=== PATIENT | male | born 1950 | race Caucasian/White ===

== ENCOUNTER → 2016-12-17 | Outpatient (CLI) | payer BC ==
[~2016-12-17] MED LIST: ACCUPRIL10 MG PO; ASPIRIN ADULT L81 M1 PO; ATOXIMETIN-B1 CAP PO; CARVEDILOL6.25 MG; COREG6.25 MG PO; FLONASE0.05 MG/AC INH; HYDROCODONE BIT1 T11 PO; LEVOFLOXACIN500 MG PO; LIPITOR20 MG PO; MAREPA1200 MG PO; NEXIUM40 MG/PACK PO; NORCO 325 MG-51 TAB PO; PERCOCET 325 MG1 TA2; PREVACID15 MG PO; QUINAPRIL10 MG PO
[2016-12-17 07:28] LABS: FOLIC ACID 13.19 ng/mL (>5.38)
[2016-12-18 08:11] LABS: RHEUMATOID ARTHRITIS FACTOR <10.0 IU/mL (0.0-13.9)
[2016-12-18 11:07] LABS: SJOGREN ANTI-SS-A <0.2 AI (0.0-0.9); SJOREN AB, ANTI-SS-B <0.2 AI (0.0-0.9)
[2016-12-18 13:05] LABS: ANGIOTENSIN-CONVERTING ENZYME 8 U/L (14-82)
[2016-12-18 16:11] LABS: A/G RATIO 1.6 (0.7-1.7); ALBUMIN 3.8 g/dL (2.9-4.4); ALPHA-1-GLOBULIN 0.2 g/dL (0.0-0.4); BETA GLOBULIN 0.9 g/dL (0.7-1.3); FREE KAPPA LIGHT CHAINS 21.7 mg/L (3.3-19.4); FREE LAMBDA LIGHT CHAINS 13.5 mg/L (5.7-26.3); GAMMA GLOBULIN 0.8 g/dL (0.4-1.8); GLOBULIN, TOTAL 2.5 g/dL (2.2-3.9); KAPPA/LAMBDA RATIO 1.61 (0.26-1.65); M-SPIKE 0.3 g/dL (Not Observed); TOTAL PROTEIN, SERUM 6.3 g/dL (6.0-8.5)
== END | disposition home or self-care (01) ==
LOC: LAB 03:07
PROVIDERS: Psychiatry & Neurology Neurology
DX: G62.9 Polyneuropathy, unspecified (principal)

== ENCOUNTER → 2016-12-31 | Emergency (ER) | payer OTHER, BC ==
[~2016-12-31] VITALS: Ht 180.3 cm; Wt 92.1 kg
[~2016-12-31] MED LIST changes: +ALLEGRA ALLERG180 M2 PO; +NEURONTIN300 MG PO; +ZOFRAN ODT4 MG SL
[2016-12-31 03:25] VITALS: BP 158/83
== END ==
LOC: ED 03:17
DX: T59.91XA Toxic effect of unspecified gases, fumes and vapors, accidental (unintentional), initial encounter (principal); R11.0 Nausea; R42 Dizziness and giddiness; Z79.82 Long term (current) use of aspirin; Z79.899 Other long term (current) drug therapy; Y92.9 Unspecified place or not applicable

== ENCOUNTER → 2017-01-15 | Outpatient (CLI) | payer BC ==
[2017-01-15 02:47] LABS: HEMATOCRIT 44.5 % (42.0-52.0); HEMOGLOBIN 15.2 g/dl (14.0-18.0); MEAN CELL VOLUME 89.2 fl (80.0-94.0); MEAN CORPUSCULAR HGB 30.5 pg (27.0-31.0); MEAN CORPUSCULAR HGB CONC 34.2 g/dl (33.0-37.0); MEAN PLATELET VOLUME 10.1 fl (9.6-12.3); RED BLOOD COUNT 4.99 10*6/uL (4.50-5.90); RED CELL DISTRI WIDTH 12.8 % (0-14.5); WHITE BLOOD COUNT 10.7 10*3/uL (4.8-10.8)
[2017-01-15 03:02] LABS: ALBUMIN 4.1 gm/dl (3.1-4.5); ALKALINE PHOSPHATASE 45 U/L (45-117); BILIRUBIN, TOTAL 0.4 mg/dl (0.2-1.0); BUN 25 mg/dl (7-24); CARBON DIOXIDE 26 mmol/L (21-32); CHLORIDE 104 mmol/L (98-107); EST GLOM FILT AFRICAN AMERICAN > 60 ml/min; GLUCOSE 102 mg/dL (65-99); SGOT/AST 17 IU/L (3-35); SGPT/ALT 29 U/L (12-78); SODIUM 138 mmol/L (136-145); TOTAL PROTEIN 7.5 gm/dL (6.4-8.2)
== END | disposition home or self-care (01) ==
LOC: LAB 02:28
PROVIDERS: Family Medicine
DX: Z77.098 Contact with and (suspected) exposure to other hazardous, chiefly nonmedicinal, chemicals (principal)

== ENCOUNTER 2017-01-30 13:15 | Emergency (ER) | payer BC ==
[~2017-01-30] VITALS: Ht 180.3 cm; Wt 89.8 kg
[2017-01-30 13:19] VITALS: BP 184/77
[2017-01-30 14:05] LABS: BASO # 0.1 10*3/uL (0.0-0.1); BASO % 0.7 % (0.0-1.0); EOS # 0.3 10*3/uL (0.0-0.4); EOS % 3.1 % (1.0-4.0); HEMATOCRIT 44.8 % (42.0-52.0); HEMOGLOBIN 15.1 g/dl (14.0-18.0); LYMPH # 1.9 10*3/uL (1.3-4.4); LYMPH % 21.6 % (27.0-41.0); MEAN CELL VOLUME 90.1 fl (80.0-94.0); MEAN CORPUSCULAR HGB 30.4 pg (27.0-31.0); MEAN CORPUSCULAR HGB CONC 33.7 g/dl (33.0-37.0); MONO # 0.8 10*3/uL (0.1-1.0); NEUT # 5.8 10*3/uL (2.3-7.9); NEUT % 65.4 % (47.0-73.0); PLATELET COUNT AUTOMATED 223 10*3/uL (130-400); RED BLOOD COUNT 4.97 10*6/uL (4.50-5.90); WHITE BLOOD COUNT 8.9 10*3/uL (4.8-10.8)
[2017-01-30 14:21] LABS: ALKALINE PHOSPHATASE 45 U/L (45-117); BUN 23 mg/dl (7-24); CHLORIDE 106 mmol/L (98-107); CREATININE 1.17 mg/dL (0.70-1.30); LIPASE 150 U/L (73-393); MAGNESIUM 2.4 mg/dL (1.5-2.1); POTASSIUM 3.7 mmol/L (3.5-5.1); SGOT/AST 14 IU/L (3-35); SGPT/ALT 28 U/L (12-78); SODIUM 139 mmol/L (136-145); TOTAL PROTEIN 7.2 gm/dL (6.4-8.2)
[2017-01-30 15:56] LABS: BILIRUBIN NEGATIVE (NEGATIVE); BLOOD 2+ (NEGATIVE); CLARITY SL CLOUDY (CLEAR); COLOR YELLOW (YELLOW); GLUCOSE NEGATIVE (NEGATIVE); KETONE NEGATIVE (NEGATIVE); LEUKO ESTERASE TRACE (NEGATIVE); NITRITE NEGATIVE (NEGATIVE); SPECIFIC GRAVITY 1.015 (1.005-1.030); UROBILINOGEN 0.2 E.U./dl (0.2-1.0)
[2017-01-30 16:06] LABS: BACTERIA TRACE; RBC 21-30 rbc/hpf (0-2)
[2017-01-30] MEDS ORDERED: Motrin,Rufen800 MG PO (16:32)
[2017-01-30] MEDS ORDERED: ZOFRAN ODT4 MG SL (16:32)
[2017-01-30] MEDS ORDERED: FLOMAX0.4 MG PO (16:32)
[2017-01-30] MEDS ORDERED: PERCOCET 5-3251 EACH PO (16:32)
== END 2017-01-30 17:28 | disposition home or self-care (01) ==
LOC: ED 13:15
PROVIDERS: Emergency Medicine
DX: N20.1 Calculus of ureter (principal); E11.9 Type 2 diabetes mellitus without complications; I10 Essential (primary) hypertension; Z90.49 Acquired absence of other specified parts of digestive tract; Z98.890 Other specified postprocedural states; Z79.82 Long term (current) use of aspirin; Z79.899 Other long term (current) drug therapy

== ENCOUNTER 2017-11-27 18:42 | Inpatient (IN) | payer BC, MEDICARE ==
[~2017-11-27] VITALS: Ht 180.3 cm; Wt 85.4 kg
--- NOTE | ~2017-11-27 | CON ---
[place], [place] REPORT OF CONSULTATION NAME: [facility]D [id number] UNIT #: [id number] ROOM: 424 DOCTOR: TORITO SAUCEDO MD BIRTHDATE: [birth year] DOS: 11/28/2017 CARDIOLOGY CONSULTATION REASON FOR CONSULTATION: Chest pain. HISTORY OF PRESENT ILLNESS: The patient is a 67-year-old man who has no previously documented history of coronary artery disease. He states that he did have heart testing about 15 years ago that was all normal. He was recently documented as having hypertension and type 2 diabetes mellitus. He was told that he had had diabetes for quite some time, although it had not been diagnosed. He does have significant neuropathy of his hands and feet. He states that he was in his normal state of health until yesterday. 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 He stated that even before going to bed, he felt inordinately tired and did not feel much better after he had slept. He got up and had a couple of cups of coffee after which he developed severe heaviness in his chest, which radiated into his back. He felt severe fatigue and some dyspnea. He felt like there was a "brick on his chest." He therefore came to the Emergency Room for evaluation. His electrocardiogram showed no acute changes and cardiac biomarkers have been normal thus far. PAST MEDICAL HISTORY: Includes the followin. Essential hypertension. 2. Type 2 diabetes mellitus with neuropathy. 3. Remote history of cardiac evaluation about 15 years ago with normal results. MEDICATIONS PRIOR TO ADMISSION: Aspirin 81 mg per day, cholecalciferol 1000 units per day, cyanocobalamin B12 once per day, esomeprazole 20 mg daily, gabapentin 300 mg daily, ibuprofen 800 mg t.i.d., metformin 500 mg b.i.d., potassium 99 mg daily, quinapril 10 mg daily, simvastatin 5 mg at bedtime, Coenzyme Q10 200 mg per day and vitamin E 400 units per day. ALLERGIES: He has no known drug allergies. FAMILY HISTORY: Negative for early coronary artery disease. REVIEW OF SYSTEMS: The patient denies diplopia or loss of vision. He denies lightheadedness or syncope. Denies orthopnea or PND. Denies fevers, chills, sweats or recent weight change. He has had chest discomfort as noted above along with fatigue. He denies nausea or vomiting. He denies hemoptysis or hematemesis. He denies change in bowel or bladder habits. Denies blood in the stools or urine. He denies any peripheral edema. He denies any skin rashes. He denies heat or cold intolerance. He denies polyuria or polydipsia. The remainder of the review of systems is negative except as noted above. 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 He does not smoke or consume excessive amounts of alcohol. PHYSICAL EXAMINATION: GENERAL: The patient is a well-nourished white male who is awake, alert and [place], [place] REPORT OF CONSULTATION NAME: MAKEDA FORD UNIT #: [id number] ROOM: [facility] DOCTOR: TORITO SAUCEDO MD BIRTHDATE: [birth year] oriented. VITAL SIGNS: Pulse is 94 and regular, blood pressure is 157/72. He is afebrile. He weighs 85.4 kg and has a body mass index of 26.3. HEENT: Normocephalic, atraumatic. Extraocular muscles are intact. Sclerae are clear. Pupils are equal, round and react to light. The oral mucosa is moist. Tongue is midline. NECK: Supple. He has no jugular distention. Carotids are full without bruits. There are no neck or supraclavicular masses, no thyromegaly. LUNGS: Respirations are unlabored. His chest is clear to auscultation and percussion. He has no presacral edema or chest wall tenderness. CARDIOVASCULAR: His heart has a regular rhythm. He has a fourth heart sound, but no third heart sound or murmur. The PMI is not displaced. There is no precordial heave, lift or thrill. ABDOMEN: Obese, but otherwise benign, without masses, organomegaly or bruits. There is no tenderness. EXTREMITIES: Showed no clubbing, cyanosis or edema. He does have a hammertoe on his left foot. His foot is wrapped. Pedal pulses are palpable in the feet bilaterally. LABORATORY DATA: I reviewed his electrocardiogram, which showed sinus rhythm with no acute changes. Hemoglobin is 14.5, white count 6800, platelet count 187,000. Sodium 141, potassium 3.7, chloride 108, CO2 of 24, BUN 26, creatinine 1.16. Troponins negative x 3. IMPRESSIONS: 1. Typical chest discomfort with fatigue consistent with new onset angina. 2. Type 2 diabetes mellitus, complicated by neuropathy. 3. History of hypertension. PLAN: We will proceed with an exercise myocardial perfusion study. Further recommendations depend upon the results of the test. TORITO SAUCEDO MD CM:CONSTR:REPORT OF CONSULTATION 0955 11/28/17 2119 interface
--- NOTE | ~2017-11-27 | WRIGHTHP ---
[place], [place] PATIENT HISTORY AND PHYSICAL EXAM [facility] [id number] UNIT #: [id number] ROOM: 424 DOCTOR: SD MENG MD BIRTHDATE: [birth year] DOS: 11/27/2017 HISTORY OF PRESENT ILLNESS: This patient is 67 years old. He is an employee of [employer], comes in with complaints of retrosternal chest pain of a day's duration. The patient states that for the last few days, he has occasionally experienced pain between the shoulder blades. When he experienced chest pain, which felt like a brick on his chest, he decided to come into the Emergency Room. He denies having any chest pains after admission. Does not have any shortness of breath, any abdominal pain, nausea, emesis. PAST MEDICAL HISTORY: Significant for: 1. Benign hypertension. 2. Type 2 diabetes mellitus. 3. History of cardiac workup about several years back. MEDICATIONS: Quinapril, gabapentin, ibuprofen, metformin, Nexium, vitamin D, potassium, CoQ10. SOCIAL HISTORY: Nonsmoker, does not use any alcohol. He lives at home. He drinks 3 glasses of wine a week. He works with two jobs, both in [employer] as well as [employer] in [employer]. PHYSICAL EXAMINATION: VITAL SIGNS: Blood pressure is 128/72, pulse of 58, respirations 20, temperature 98.0. LUNGS: Diminished breath sounds. No wheezes, rales or rhonchi heard. HEART: Regular. ABDOMEN: Obese. EXTREMITIES: Without any edema. Three sets of troponins were negative. Lipid profile noted to be abnormal. ASSESSMENT AND PLAN: 1. Precordial chest pain, awaiting stress test this morning, the patient is ruled out for myocardial infarction. 2. Benign hypertension, controlled. Echocardiogram is pending. 3. Mixed hyperlipidemia. Low dose statins have been ordered. 4. Type 2 diabetes mellitus, on metformin. Continue to avoid nonsteroidal usage as well as intake of wine together, which increases the risk of gastritis. The patient is already on proton pump inhibitors. [place], [place] PATIENT HISTORY AND PHYSICAL EXAM NAME: [facility] [id number] UNIT #: [id number] ROOM: 424 DOCTOR: SD MENG MD BIRTHDATE: [birth year] SD MENG MD CM:PRIYANKAS:PATIENT HISTORY AND PHYSICAL EXAMINATION 0754 [id number] SD MENG MD 11/28/17 0821 interface
[~2017-11-27 18:42] MED LIST changes: +FLOMAX0.4 MG PO; +Motrin,Rufen800 MG PO; +NEXIUM20 M2 PO; -NEXIUM40 MG/PACK PO; +PERCOCET 5-3251 EACH PO
[2017-11-27 18:51] VITALS: BP 151/82
[2017-11-27] MEDS ORDERED: METFORMIN HYDR500 MG PO (18:58)
[2017-11-27] MEDS ORDERED: POTASSIUM99 M5 PO (18:59)
[2017-11-27] MEDS ORDERED: VITAMIN B12-FO1 EACH PO (19:00)
[2017-11-27] MEDS ORDERED: VITAMIN E400 UNI3 PO (19:00)
[2017-11-27] MEDS ORDERED: CO Q-10200 MG PO (19:00)
[2017-11-27] MEDS ORDERED: VITAMIN D31000 UNI1 PO (19:00)
[2017-11-27] MEDS ORDERED: ASPIRIN81 M1 PO (19:01)
[2017-11-27 19:20] VITALS: BP 162/87
[2017-11-27 19:55] VITALS: BP 140/66
[2017-11-27 19:56] LABS: BASO # 0.1 10*3/uL (0.0-0.1); BASO % 0.7 % (0.0-1.0); EOS # 0.3 10*3/uL (0.0-0.4); EOS % 4.4 % (1.0-4.0); HEMOGLOBIN 14.5 g/dl (14.0-18.0); LYMPH # 1.4 10*3/uL (1.3-4.4); MEAN CELL VOLUME 90.5 fl (80.0-94.0); MEAN CORPUSCULAR HGB 31.3 pg (27.0-31.0); MEAN CORPUSCULAR HGB CONC 34.5 g/dl (33.0-37.0); MEAN PLATELET VOLUME 10.2 fl (9.6-12.3); MONO # 0.9 10*3/uL (0.1-1.0); MONO % 12.5 % (3.0-9.0); NEUT # 4.2 10*3/uL (2.3-7.9); PLATELET COUNT AUTOMATED 187 10*3/uL (130-400); RED BLOOD COUNT 4.64 10*6/uL (4.50-5.90); WHITE BLOOD COUNT 6.8 10*3/uL (4.8-10.8)
[2017-11-27 20:06] LABS: ACT PARTIAL THROMBO TIME 23.5 SECONDS (20.8-31.5)
[2017-11-27 20:12] LABS: ALBUMIN 3.9 gm/dl (3.1-4.5); ALKALINE PHOSPHATASE 42 U/L (45-117); BUN 26 mg/dl (7-24); CHLORIDE 108 mmol/L (98-107); CREATININE 1.16 mg/dL (0.70-1.30); POTASSIUM 3.7 mmol/L (3.5-5.1); SGOT/AST 11 IU/L (3-35); SGPT/ALT 26 U/L (12-78); SODIUM 141 mmol/L (136-145); TOTAL PROTEIN 6.9 gm/dL (6.4-8.2)
[2017-11-27 20:14] LABS: TROPONIN I < 0.015 ng/ml (<0.045)
[2017-11-27 20:25] VITALS: BP 135/72
[2017-11-27 20:46] VITALS: BP 140/75
[2017-11-27 21:20] VITALS: BP 138/76
[2017-11-28] VITALS: BP 128/72
[2017-11-28 04:59] LABS: CHOLESTEROL 214 mg/dL (<200); HDL CHOLESTEROL 34 mg/dl (40-60); LDL CHOLESTEROL 137 mg/dL (9-159); TRIGLYCERIDES 214 mg/dl (<150); VLDL CHOLESTEROL 43 mg/dL (6-40)
[2017-11-28] MEDS ORDERED: ZOCOR5 MG PO (07:08)
[2017-11-28 08:00] VITALS: BP 157/72
[2017-11-28 12:00] VITALS: BP 128/68
== END 2017-11-28 14:35 | disposition home or self-care (01) | DRG 311 ==
LOC: ED 18:42 → 4E 20:48 → EDHOLD 20:48 → 4E 21:01
PROVIDERS: Emergency Medicine; Internal Medicine
DX: I20.8 Other forms of angina pectoris (principal); E11.40 Type 2 diabetes mellitus with diabetic neuropathy, unspecified; E78.2 Mixed hyperlipidemia; E66.9 Obesity, unspecified; I10 Essential (primary) hypertension; Z79.899 Other long term (current) drug therapy; Z79.82 Long term (current) use of aspirin; Z90.49 Acquired absence of other specified parts of digestive tract; Z68.26 Body mass index [BMI] 26.0-26.9, adult

== ENCOUNTER → 2017-12-18 | Outpatient (CLI) | payer BC, MEDICARE ==
[~2017-12-18] MED LIST changes: +ASPIRIN81 M1 PO; +CO Q-10200 MG PO; +METFORMIN HYDR500 MG PO; +POTASSIUM99 M5 PO; +VITAMIN B12-FO1 EACH PO; +VITAMIN D31000 UNI1 PO; +VITAMIN E400 UNI3 PO; +ZOCOR5 MG PO
[2017-12-18 01:19] LABS: ALBUMIN 4.3 gm/dl (3.1-4.5); ALKALINE PHOSPHATASE 42 U/L (45-117); BUN 29 mg/dl (7-24); CHLORIDE 107 mmol/L (98-107); CHOLESTEROL 217 mg/dL (<200); CREATININE 1.17 mg/dL (0.70-1.30); HDL CHOLESTEROL 38 mg/dl (40-60); LDL CHOLESTEROL 158 mg/dL (9-159); SGOT/AST 15 IU/L (3-35); SGPT/ALT 28 U/L (12-78); SODIUM 141 mmol/L (136-145); TOTAL PROTEIN 7.2 gm/dL (6.4-8.2); TRIGLYCERIDES 106 mg/dl (<150); VLDL CHOLESTEROL 21 mg/dL (6-40)
== END | disposition home or self-care (01) ==
LOC: LAB 00:44
PROVIDERS: Family Medicine
DX: K21.9 Gastro-esophageal reflux disease without esophagitis (principal); E74.9 Disorder of carbohydrate metabolism, unspecified; E78.00 Pure hypercholesterolemia, unspecified; E55.9 Vitamin D deficiency, unspecified

== ENCOUNTER → 2018-05-07 | Outpatient (CLI) | payer BC ==
[2018-05-07 01:18] LABS: HEMATOCRIT 43.5 % (42.0-52.0); HEMOGLOBIN 14.9 g/dl (14.0-18.0); MEAN CELL VOLUME 90.6 fl (80.0-94.0); MEAN CORPUSCULAR HGB CONC 34.3 g/dl (33.0-37.0); RED BLOOD COUNT 4.8 10*6/uL (4.50-5.90); RED CELL DISTRI WIDTH 12.9 % (0-14.5); WHITE BLOOD COUNT 9.1 10*3/uL (4.8-10.8)
[2018-05-07 01:35] LABS: ALKALINE PHOSPHATASE 40 U/L (45-117); BUN 28 mg/dl (7-24); CHLORIDE 104 mmol/L (98-107); CHOLESTEROL 186 mg/dL (<200); CREATININE 1.08 mg/dL (0.70-1.30); HDL CHOLESTEROL 38 mg/dl (40-60); LDL CHOLESTEROL 128 mg/dL (9-159); POTASSIUM 4.2 mmol/L (3.5-5.1); SGOT/AST 15 IU/L (3-35); SGPT/ALT 30 U/L (12-78); SODIUM 140 mmol/L (136-145); TOTAL PROTEIN 7.3 gm/dL (6.4-8.2); TRIGLYCERIDES 101 mg/dl (<150); VLDL CHOLESTEROL 20 mg/dL (6-40)
== END | disposition home or self-care (01) ==
LOC: LAB 01:04
PROVIDERS: Family Medicine
DX: E55.9 Vitamin D deficiency, unspecified (principal); E78.00 Pure hypercholesterolemia, unspecified; Z79.899 Other long term (current) drug therapy

== ENCOUNTER → 2018-07-07 | Outpatient (CLI) | payer BC ==
[2018-07-07 03:05] LABS: HEMATOCRIT 43.6 % (42.0-52.0); HEMOGLOBIN 15.5 g/dl (14.0-18.0); MEAN CELL VOLUME 89.2 fl (80.0-94.0); MEAN CORPUSCULAR HGB 31.7 pg (27.0-31.0); MEAN CORPUSCULAR HGB CONC 35.6 g/dl (33.0-37.0); MEAN PLATELET VOLUME 9.9 fl (9.6-12.3); RED BLOOD COUNT 4.89 10*6/uL (4.50-5.90); RED CELL DISTRI WIDTH 12.8 % (0-14.5); WHITE BLOOD COUNT 8.5 10*3/uL (4.8-10.8)
[2018-07-07 03:21] LABS: ALBUMIN 4.1 gm/dl (3.1-4.5); ALKALINE PHOSPHATASE 42 U/L (45-117); BUN 28 mg/dl (7-24); CHLORIDE 107 mmol/L (98-107); CHOLESTEROL 192 mg/dL (<200); CREATININE 1.13 mg/dL (0.70-1.30); HDL CHOLESTEROL 38 mg/dl (40-60); LDL CHOLESTEROL 136 mg/dL (9-159); POTASSIUM 4.2 mmol/L (3.5-5.1); SGOT/AST 13 IU/L (3-35); SGPT/ALT 31 U/L (12-78); SODIUM 141 mmol/L (136-145); TOTAL PROTEIN 7.3 gm/dL (6.4-8.2); TRIGLYCERIDES 91 mg/dl (<150); VLDL CHOLESTEROL 18 mg/dL (6-40)
== END | disposition home or self-care (01) ==
LOC: LAB 02:50
PROVIDERS: Family Medicine
DX: E78.00 Pure hypercholesterolemia, unspecified (principal); Z79.899 Other long term (current) drug therapy

== ENCOUNTER → 2019-02-05 | Outpatient (CLI) | payer BC ==
[2019-02-05 02:48] LABS: HEMATOCRIT 43.7 % (42.0-52.0); HEMOGLOBIN 14.9 g/dl (14.0-18.0); MEAN CORPUSCULAR HGB 31.4 pg (27.0-31.0); MEAN CORPUSCULAR HGB CONC 34.1 g/dl (33.0-37.0); RED BLOOD COUNT 4.75 10*6/uL (4.50-5.90); RED CELL DISTRI WIDTH 13.1 % (0-14.5); WHITE BLOOD COUNT 7.6 10*3/uL (4.8-10.8)
[2019-02-05 03:04] LABS: ALBUMIN 4.1 gm/dl (3.1-4.5); ALKALINE PHOSPHATASE 42 U/L (45-117); BUN 25 mg/dl (7-24); CHLORIDE 106 mmol/L (98-107); CHOLESTEROL 180 mg/dL (<200); CREATININE 0.93 mg/dL (0.70-1.30); HDL CHOLESTEROL 50 mg/dl (40-60); LDL CHOLESTEROL 116 mg/dL (9-159); POTASSIUM 3.8 mmol/L (3.5-5.1); SGOT/AST 18 IU/L (3-35); SGPT/ALT 28 U/L (12-78); SODIUM 139 mmol/L (136-145); TOTAL PROTEIN 7.1 gm/dL (6.4-8.2); TRIGLYCERIDES 71 mg/dl (<150); VLDL CHOLESTEROL 14 mg/dL (6-40)
== END | disposition home or self-care (01) ==
LOC: LAB 02:07
PROVIDERS: Family Medicine
DX: E55.9 Vitamin D deficiency, unspecified (principal); E78.00 Pure hypercholesterolemia, unspecified; I10 Essential (primary) hypertension

== ENCOUNTER → 2019-02-23 | Outpatient (CLI) | payer BC ==
[2019-02-24 09:03] LABS: PROSTATE SPECIFIC AG FREE 0.55 ng/mL; PROSTATE SPECIFIC AG, SERUM 1.4 ng/mL (0.0-4.0)
== END | disposition home or self-care (01) ==
LOC: LAB 02:20
PROVIDERS: Family Medicine
DX: E11.9 Type 2 diabetes mellitus without complications (principal)

== ENCOUNTER → 2019-05-12 | Outpatient (CLI) | payer BC ==
[2019-05-12 04:36] LABS: ALBUMIN 4.1 gm/dl (3.1-4.5); ALKALINE PHOSPHATASE 41 U/L (45-117); BUN 30 mg/dl (7-24); CHLORIDE 107 mmol/L (98-107); CHOLESTEROL 160 mg/dL (<200); CPK 342 U/L (39-308); HDL CHOLESTEROL 48 mg/dl (40-60); POTASSIUM 4.1 mmol/L (3.5-5.1); SGOT/AST 17 IU/L (3-35); SGPT/ALT 28 U/L (12-78); SODIUM 139 mmol/L (136-145); TOTAL PROTEIN 7.3 gm/dL (6.4-8.2)
[2019-05-12 04:42] LABS: LDL CHOLESTEROL 100 mg/dL (9-159); TRIGLYCERIDES 62 mg/dl (<150); VLDL CHOLESTEROL 12 mg/dL (6-40)
== END | disposition home or self-care (01) ==
LOC: LAB 03:41
PROVIDERS: Family Medicine
DX: E78.00 Pure hypercholesterolemia, unspecified (principal)

== ENCOUNTER → 2019-06-18 | Outpatient (CLI) | payer OTHER ==
[2019-06-18 03:46] LABS: ALKALINE PHOSPHATASE 47 U/L (45-117); BUN 24 mg/dl (7-24); CHLORIDE 106 mmol/L (98-107); CHOLESTEROL 193 mg/dL (<200); CPK 146 U/L (39-308); CREATININE 0.97 mg/dL (0.70-1.30); HDL CHOLESTEROL 42 mg/dl (40-60); LDL CHOLESTEROL 134 mg/dL (9-159); SGOT/AST 11 IU/L (3-35); SGPT/ALT 26 U/L (12-78); SODIUM 139 mmol/L (136-145); TRIGLYCERIDES 85 mg/dl (<150); VLDL CHOLESTEROL 17 mg/dL (6-40)
== END | disposition home or self-care (01) ==
LOC: LAB 02:54
PROVIDERS: Family Medicine
DX: E11.9 Type 2 diabetes mellitus without complications (principal); E78.00 Pure hypercholesterolemia, unspecified

== ENCOUNTER → 2019-12-10 | Outpatient (CLI) | payer OTHER ==
[2019-12-10 03:21] LABS: HEMATOCRIT 43.8 % (42.0-52.0); MEAN CORPUSCULAR HGB 30.7 pg (27.0-31.0); MEAN CORPUSCULAR HGB CONC 33.3 g/dl (33.0-37.0); MEAN PLATELET VOLUME 10.4 fl (9.6-12.3); RED BLOOD COUNT 4.76 10*6/uL (4.50-5.90); WHITE BLOOD COUNT 8.3 10*3/uL (4.8-10.8)
[2019-12-10 03:36] LABS: CHOLESTEROL 213 mg/dL (<200); HDL CHOLESTEROL 46 mg/dl (40-60); LDL CHOLESTEROL 149 mg/dL (9-159); TRIGLYCERIDES 92 mg/dl (<150); VLDL CHOLESTEROL 18 mg/dL (6-40)
== END | disposition home or self-care (01) ==
LOC: LAB 02:37
PROVIDERS: Family Medicine
DX: E11.9 Type 2 diabetes mellitus without complications (principal); E78.00 Pure hypercholesterolemia, unspecified

== ENCOUNTER → 2020-01-25 | Outpatient (CLI) | payer OTHER ==
[2020-01-25 04:06] LABS: ALBUMIN 3.9 gm/dl (3.1-4.5); ALKALINE PHOSPHATASE 39 U/L (45-117); BUN 34 mg/dl (7-24); CHLORIDE 109 mmol/L (98-107); CHOLESTEROL 163 mg/dL (<200); CPK 167 U/L (39-308); CREATININE 1.01 mg/dL (0.70-1.30); HDL CHOLESTEROL 44 mg/dl (40-60); LDL CHOLESTEROL 101 mg/dL (9-159); POTASSIUM 3.9 mmol/L (3.5-5.1); SGOT/AST 9 IU/L (3-35); SGPT/ALT 23 U/L (12-78); SODIUM 141 mmol/L (136-145); TOTAL PROTEIN 7.1 gm/dL (6.4-8.2); TRIGLYCERIDES 92 mg/dl (<150); VLDL CHOLESTEROL 18 mg/dL (6-40)
== END | disposition home or self-care (01) ==
LOC: LAB 03:31
PROVIDERS: ATTEND Family Medicine
DX: E78.00 Pure hypercholesterolemia, unspecified (principal)

== ENCOUNTER → 2020-04-20 | Outpatient (CLI) | payer OTHER ==
[2020-04-20 02:32] LABS: ALBUMIN 4.1 gm/dl (3.1-4.5); ALKALINE PHOSPHATASE 42 U/L (45-117); BUN 28 mg/dl (7-24); CHLORIDE 107 mmol/L (98-107); CHOLESTEROL 144 mg/dL (<200); CPK 201 U/L (39-308); CREATININE 0.92 mg/dL (0.70-1.30); HDL CHOLESTEROL 47 mg/dl (40-60); LDL CHOLESTEROL 85 mg/dL (9-159); POTASSIUM 3.9 mmol/L (3.5-5.1); SGOT/AST 14 IU/L (3-35); SGPT/ALT 28 U/L (12-78); SODIUM 141 mmol/L (136-145); TOTAL PROTEIN 7.1 gm/dL (6.4-8.2); TRIGLYCERIDES 62 mg/dl (<150); VLDL CHOLESTEROL 12 mg/dL (6-40)
== END | disposition home or self-care (01) ==
LOC: LAB 01:01
PROVIDERS: ATTEND Family Medicine
DX: I10 Essential (primary) hypertension (principal); E78.00 Pure hypercholesterolemia, unspecified; E11.9 Type 2 diabetes mellitus without complications

== ENCOUNTER 2020-05-03 16:01 | Observation (INO) | payer OTHER ==
[~2020-05-03] VITALS: Ht 180.3 cm; Wt 82.1 kg
[2020-05-03 16:09] VITALS: BP 160/60
[2020-05-03 16:25] LABS: BASO # 0.1 10*3/uL (0.0-0.1); BASO % 0.8 % (0.0-1.0); EOS # 0.4 10*3/uL (0.0-0.4); EOS % 4.9 % (1.0-4.0); HEMATOCRIT 44.9 % (42.0-52.0); LYMPH # 2.3 10*3/uL (1.3-4.4); LYMPH % 32.7 % (27.0-41.0); MEAN CELL VOLUME 90.3 fl (80.0-94.0); MEAN CORPUSCULAR HGB 30.6 pg (27.0-31.0); MEAN CORPUSCULAR HGB CONC 33.9 g/dl (33.0-37.0); MEAN PLATELET VOLUME 9.8 fl (9.6-12.3); MONO # 0.9 10*3/uL (0.1-1.0); MONO % 12.8 % (3.0-9.0); NEUT # 3.5 10*3/uL (2.3-7.9); NEUT % 48.7 % (47.0-73.0); PLATELET COUNT AUTOMATED 209 10*3/uL (130-400); RED BLOOD COUNT 4.97 10*6/uL (4.50-5.90); RED CELL DISTRI WIDTH 12.9 % (0-14.5); WHITE BLOOD COUNT 7.1 10*3/uL (4.8-10.8)
[2020-05-03 16:36] LABS: ACT PARTIAL THROMBO TIME 25.5 SECONDS (20.0-32.1)
[2020-05-03 16:41] LABS: ALBUMIN 3.8 gm/dl (3.1-4.5); ALKALINE PHOSPHATASE 40 U/L (45-117); BUN 30 mg/dl (7-24); CHLORIDE 109 mmol/L (98-107); CREATININE 1.02 mg/dL (0.70-1.30); POTASSIUM 3.9 mmol/L (3.5-5.1); SGOT/AST 11 IU/L (3-35); SGPT/ALT 26 U/L (12-78); SODIUM 142 mmol/L (136-145)
[2020-05-03 16:48] LABS: TROPONIN I < 0.015 ng/ml (<0.045)
--- NOTE | 2020-05-03 19:10 | NUR ---
NURSE TO NURSE REPORT GIVEN TO THIS RN.
[2020-05-03 19:26] VITALS: BP 126/80
--- NOTE | 2020-05-03 19:56 | NUR ---
PATIENT TOOK METFORMIN 500MG FROM HOME TONIGHT WITH 162MG ASPIRIN AT THIS TIME.
[2020-05-03 20:18] VITALS: BP 128/72
[2020-05-03 21:00] VITALS: BP 132/74
--- NOTE | 2020-05-03 21:24 | NUR ---
PATIENT GIVEN BOX LUNCH AT THIS TIME. STABLE NO DISTRESS NOTED. RN WILL CONT TO MONITOR
--- NOTE | 2020-05-03 21:35 | NUR ---
PATIENT WISHING TO SIGN OUT AT THIS TIME DUE TO NO BEDS ON THE FLOOR. PATIENT STATES HE WILL COME BACK FOR STRESS TEST IN THE MORNING BUT WANTS TO BE DISCHARGED. CALLING DR JONES FOR UPDATE.
[2020-05-03 23:00] VITALS: BP 112/71
--- NOTE | 2020-05-04 01:13 | NUR ---
A 69, admitted to 4E, under the services of Dr. ROBERT BLAIR,GREG Abdul with a diagnosis of CHEST PAIN MODERATE CORONARY RISK. Chief complaint is CHEST PAIN. Patient arrived via stretcher from ER. Monitor applied. Initial assessment completed. Vital signs taken and recorded. DR. ROBERT BLAIR,GREG Abdul notified of admission to the unit. Orders received. See assessment for past medical history, medications and allergies. Patient and/or family oriented to unit. visitation policy reviewed. Clothing/patient valuable form completed. ORTEGA SON
[2020-05-04 01:15] VITALS: BP 167/75
--- NOTE | 2020-05-04 01:20 | NUR ---
MED REC AND DR. JONES CONTACT DONE IN EMERGENCY DEPARTMENT.
[2020-05-04 08:00] VITALS: BP 150/79
--- NOTE | 2020-05-04 09:00 | NUR ---
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 Patient states lives at home with his . There are 0 steps in the home. There are 6 outside steps. Physician: Dr. Adithya Hickey [facility]acy: [facility] Home health services: none Patient's level of ADLs: INDEPENDENT Patient has working utilities: yes DME: none Follow-up physician's appointment after d/c: he prefers to make his own follow up appt after discharge Does patient want to access PORTAL?: no Discharge plan discussed with patient. He is sitting up in his bedside chair awaiting his stress test. He lives at home with his . He is independent in his ADLs and ambulation. He works. Discussed home health care services and he declines. CM will continue to follow for any discharge planing needs. When medically stable he will be discharged to home. He states his will provide transportation on discharge. DEDRA CULP
--- NOTE | 2020-05-04 09:30 | NUR ---
INFORMED CONSENT OBTAINED FOR LEXISCAN NUCLEAR STRESS TEST WITH DR. JONES. RESTING EKG SINUS HOMER WITH A RESTING HR OF 54 AND BP OF 148/88. LUNGS CLEAR WITH SPO2 OF 99% ON ROOM AIR. PT COMPLETED A 1:00 LEXISCAN PROTOCOL RECEIVING LEXISCAN 0.4 MG IV OVER 10 SECONDS. HAD NO CHEST PAIN OR ANY EKG CHANGES. DID C/O FEELING OF SHORTNESS OF BREATH THAT RESOLVED IN RECOVERY. HAD A PEAK HR OF 91 WITH BP OF 132/68. LAST RECOVERY HR OF 75 WITH BP OF 118/62. AWAITING SCANNING IN STABLE CONDITION.
[2020-05-04 12:00] VITALS: BP 140/77
--- NOTE | 2020-05-04 15:49 | NUR ---
Discharge instructions reviewed with patient/family. Patient receptive and verbalizes understanding. Follow-up care arranged. Written instructions given to patient/family. AZALIA NIÑO
== END 2020-05-04 15:49 | disposition home or self-care (01) ==
LOC: ED 16:01 → EDHOLD 18:09 → 4E 22:08
PROVIDERS: Emergency Medicine; ADMIT Internal Medicine; ATTEND Internal Medicine
DX: R07.89 Other chest pain (principal); E11.9 Type 2 diabetes mellitus without complications; I10 Essential (primary) hypertension; K21.9 Gastro-esophageal reflux disease without esophagitis

== ENCOUNTER → 2020-08-10 | Outpatient (CLI) | payer OTHER ==
[2020-08-10 03:10] LABS: HEMATOCRIT 46.1 % (42.0-52.0); MEAN CELL VOLUME 91.8 fl (80.0-94.0); MEAN CORPUSCULAR HGB 30.9 pg (27.0-31.0); MEAN CORPUSCULAR HGB CONC 33.6 g/dl (33.0-37.0); RED BLOOD COUNT 5.02 10*6/uL (4.50-5.90); RED CELL DISTRI WIDTH 12.8 % (0-14.5); WHITE BLOOD COUNT 9.8 10*3/uL (4.8-10.8)
[2020-08-10 03:27] LABS: ALBUMIN 4.1 gm/dl (3.1-4.5); ALKALINE PHOSPHATASE 43 U/L (45-117); BUN 24 mg/dl (7-24); CHLORIDE 107 mmol/L (98-107); CHOLESTEROL 229 mg/dL (<200); CPK 166 U/L (39-308); CREATININE 1.18 mg/dL (0.70-1.30); HDL CHOLESTEROL 48 mg/dl (40-60); LDL CHOLESTEROL 157 mg/dL (9-159); SGOT/AST 10 IU/L (3-35); SGPT/ALT 29 U/L (12-78); SODIUM 141 mmol/L (136-145); TOTAL PROTEIN 7.5 gm/dL (6.4-8.2); TRIGLYCERIDES 121 mg/dl (<150); VLDL CHOLESTEROL 24 mg/dL (6-40)
== END | disposition home or self-care (01) ==
LOC: LAB 02:49
PROVIDERS: ATTEND Family Medicine
DX: I10 Essential (primary) hypertension (principal); E78.00 Pure hypercholesterolemia, unspecified; E11.9 Type 2 diabetes mellitus without complications; M19.90 Unspecified osteoarthritis, unspecified site

== ENCOUNTER 2022-02-18 11:29 | Emergency (ER) | payer MEDICARE ==
[~2022-02-18] VITALS: Ht 180.3 cm; Wt 81.2 kg
[2022-02-18 11:38] VITALS: BP 150/76
== END 2022-02-18 11:54 | disposition home or self-care (01) ==
LOC: ED 11:29
DX: S61.213A Laceration without foreign body of left middle finger without damage to nail, initial encounter (principal); Z79.899 Other long term (current) drug therapy; Z79.82 Long term (current) use of aspirin; Z90.49 Acquired absence of other specified parts of digestive tract; Z98.890 Other specified postprocedural states; W45.8XXA Other foreign body or object entering through skin, initial encounter; Y93.89 Activity, other specified; Y92.89 Other specified places as the place of occurrence of the external cause; Y99.8 Other external cause status

== ENCOUNTER → 2023-08-11 | Outpatient (CLI) | payer MEDICARE ==
[2023-08-11 11:49] LABS: BASO # 0.1 10*3/uL (0.0-0.1); BASO % 0.9 % (0.0-1.0); EOS # 0.3 10*3/uL (0.0-0.4); EOS % 3.8 % (1.0-4.0); HEMATOCRIT 45.1 % (42.0-52.0); LYMPH # 2.1 10*3/uL (1.3-4.4); LYMPH % 25.2 % (27.0-41.0); MEAN CELL VOLUME 92.8 fl (80.0-94.0); MEAN CORPUSCULAR HGB 31.1 pg (27.0-31.0); MEAN CORPUSCULAR HGB CONC 33.5 g/dl (33.0-37.0); MEAN PLATELET VOLUME 9.8 fl (9.6-12.3); MONO # 0.8 10*3/uL (0.1-1.0); MONO % 10.3 % (3.0-9.0); NEUT # 4.9 10*3/uL (2.3-7.9); NEUT % 59.4 % (47.0-73.0); PLATELET COUNT AUTOMATED 243 10*3/uL (130-400); RED BLOOD COUNT 4.86 10*6/uL (4.50-5.90); RED CELL DISTRI WIDTH 12.5 % (0-14.5); WHITE BLOOD COUNT 8.2 10*3/uL (4.8-10.8)
[2023-08-11 12:10] LABS: ALKALINE PHOSPHATASE 39 U/L (46-116); BUN 18 mg/dl (9-23); CHLORIDE 105 mmol/L (98-107); POTASSIUM 4.3 mmol/L (3.4-5.1); SGPT/ALT 26 U/L (5-49); TOTAL PROTEIN 7.2 gm/dL (6.0-8.0)
[2023-08-12 03:06] LABS: TOTAL PROTEIN, SERUM 6.9 g/dL (6.0-8.5)
[2023-08-12 13:06] LABS: A/G RATIO 1.3 (0.7-1.7); ALBUMIN 3.9 g/dL (2.9-4.4); ALPHA-1-GLOBULIN 0.2 g/dL (0.0-0.4); ALPHA-2-GLOBULIN 0.7 g/dL (0.4-1.0); GAMMA GLOBULIN 1.1 g/dL (0.4-1.8)
== END | disposition home or self-care (01) ==
LOC: LAB 11:15
PROVIDERS: ATTEND Psychiatry & Neurology Neurology
DX: G62.9 Polyneuropathy, unspecified (principal); E11.9 Type 2 diabetes mellitus without complications; Z79.899 Other long term (current) drug therapy

== ENCOUNTER → 2024-01-26 | Outpatient (CLI) | payer MEDICARE | END | disposition home or self-care (01) | LOC: RAD 09:54 | PROVIDERS: ATTEND Family Medicine | DX: M19.032 Primary osteoarthritis, left wrist (principal) ==